=== PATIENT | female | born 1950 | race Caucasian/White ===

== ENCOUNTER 2017-01-30 09:56 | Outpatient (CLI) | payer MEDICARE, MEDICAID ==
--- NOTE | 2017-01-30 14:13 | Cat Scan Report ---
CT CHEST WITH CONTRAST: HISTORY: Endometrial cancer, breast cancer. TECHNIQUE: Helical CT following IV contrast. Sagittal and coronal reformatted images. FINDINGS: No relevant comparison. Heart size is within normal limits. No pericardial effusion. The visualized thyroid gland, tracheobronchial tree and esophagus are unremarkable. No mediastinal mass or adenopathy. The lungs are clear other than minor linear scarring in the left upper lobe. No pleural effusion or pneumothorax. No suspicious bony lesion. Left mastectomy changes are noted. IMPRESSION: Essentially unremarkable CT chest with contrast. No acute process or evidence of metastatic disease.
--- NOTE | 2017-01-30 14:26 | Cat Scan Report ---
CT SCAN OF THE ABDOMEN AND PELVIS WITH CONTRAST: HISTORY: Endometrial cancer, breast cancer. TECHNIQUE: Helical CT in 1.25mm intervals following IV contrast. Sagittal and coronal reconstructions. FINDINGS: The liver is normal in size and is without focal defect. A few tiny liver cysts are noted. No gallstones or biliary dilatation are noted. The spleen and pancreas demonstrate a normal size and attenuation with no evidence of abnormal mass. The kidneys are normal in size and position with no evidence of hydronephrosis or mass. There are a few scattered simple appearing renal cysts with the largest measuring 3 cm in the mid right kidney. There is mild diverticulosis of the bladder. The adrenal glands are normal. There is no intestinal obstruction or ascites. The appendix is not confidently identified. The abdominal aorta is normal. The uterus and right ovary are unremarkable. A 2 cm left ovarian cyst is identified. There are a few scattered mildly enlarged lymph nodes in both sides of the pelvis. A right external iliac lymph node measures 1.5 cm. A left internal iliac lymph node measures 1.4 cm. No enlarged inguinal or para-aortic lymph nodes. The bony structures are intact. No suspicious bony lesions appreciated. IMPRESSION: Slightly suspicious pelvic lymph nodes as described above. This could represent metastatic disease from endometrial cancer. Correlation with previous exams would be helpful if they are available. Scattered renal and liver cysts. 2 cm left ovarian cyst. Diverticulosis of the bladder.
== END 2017-01-30 09:57 | disposition home or self-care (01) ==
LOC: CT 09:56
PROVIDERS: ATTEND Obstetrics & Gynecology Gynecologic Oncology
DX: C54.1 Malignant neoplasm of endometrium (principal); C55 Malignant neoplasm of uterus, part unspecified; K76.89 Other specified diseases of liver; N28.1 Cyst of kidney, acquired; N32.3 Diverticulum of bladder; N83.202 Unspecified ovarian cyst, left side; R59.9 Enlarged lymph nodes, unspecified; Z85.3 Personal history of malignant neoplasm of breast; Z85.841 Personal history of malignant neoplasm of brain; Z90.12 Acquired absence of left breast and nipple
CPT/HCPCS: 36415; 71260; 74177; 82565; Q9966

== ENCOUNTER 2018-05-25 11:38 | Outpatient (CLI) | payer MEDICARE ==
[2018-05-25 12:35] LABS: Blood Urea Nitrogen 11 mg/dL (7-17)
--- NOTE | 2018-05-25 16:00 | Cat Scan Report ---
FINAL REPORT PROCEDURE: CT ABDOMEN PELVIS W CON TECHNIQUE: Computerized axial tomography of the abdomen and pelvis was performed after the IV injection of iodinated nonionic contrast. HISTORY: ENDOMETRIAE CANCER COMPARISON: No prior studies are available for comparison. FINDINGS: Lower Lung bang: There is a small amount of dependent atelectasis. Lung bases otherwise are clear. Upper Abdomen: 6 millimeter low-density nodule seen in the left lobe of the liver appears represent a small hepatic cyst. The liver is otherwise unremarkable. Gallbladder showed no abnormality. The adrenal glands, the pancreas and the spleen are unremarkable. Kidneys, Ureters and Urinary bladder: 3 centimeter renal cortical cyst visualized lower 3rd right kidney. 8 millimeter cyst also visualized midportion right kidney laterally. Kidneys, the ureters are unremarkable. Elias of the urinary bladder are thickened and appear trabeculated. Chronic cystitis suspected. Given the thickness of the elias of the urinary bladder a mass in the wall of the urinary bladder cannot be entirely excluded. Retroperitoneum: Mild atherosclerotic changes are seen in the abdominal aorta and iliac arteries. No aneurysm is visualized. Nonspecific subcentimeter lymph nodes are seen in the retroperitoneum. No pathologically enlarged lymph nodes are identified. Bowel: Bowel loops are unremarkable. No evidence of bowel obstruction ascites or free intraperitoneal gas. Appendix is not visualized. Reproductive organs: Uterus is surgically absent. No abnormal adnexal masses are identified. Other: Bones are diffusely demineralized suggesting osteoporosis. No acute bony abnormalities are seen IMPRESSION: Prior hysterectomy. No abnormal adnexal masses are seen. Elias of the urinary bladder are irregularly thickened and appear trabeculated. Chronic cystitis suspected. Given the thickness of the elias of the urinary bladder and trabeculation it would be difficult to exclude a small mass. Osteoporosis. Renal cortical cyst visualize right kidney. Small hepatic cysts seen left lobe of the liver.
== END 2018-05-25 11:39 | disposition home or self-care (01) ==
LOC: CT 11:38
PROVIDERS: ATTEND Obstetrics & Gynecology Gynecologic Oncology
DX: N28.1 Cyst of kidney, acquired (principal); J98.11 Atelectasis; I70.0 Atherosclerosis of aorta; M81.0 Age-related osteoporosis without current pathological fracture; K76.89 Other specified diseases of liver; Z90.710 Acquired absence of both cervix and uterus; Z85.42 Personal history of malignant neoplasm of other parts of uterus
CPT/HCPCS: 36415; 74177; 82565; 84520; Q9967